=== PATIENT | female | born 1995 | race Two or more races ===

== ENCOUNTER 2016-12-27 18:21 | Emergency (ER) | payer OTHER ==
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
== END 2016-12-27 19:13 | disposition home or self-care (01) ==
LOC: CED 18:21
DX: S09.90XA Unspecified injury of head, initial encounter (principal); V49.40XA Driver injured in collision with unspecified motor vehicles in traffic accident, initial encounter; Y92.410 Unspecified street and highway as the place of occurrence of the external cause
CPT/HCPCS: 70450; 72040; 73030; 99284